=== PATIENT | female | born 1955 | race Caucasian/White ===

== ENCOUNTER 2024-10-23 05:44 | Emergency (ER) | payer BC, MEDICARE ==
[2024-10-23 07:11] LABS: INFLUENZA A NAA NEGATIVE (NEGATIVE); INFLUENZA B NAA NEGATIVE (NEGATIVE); RESPIRATORY SYNCYTIAL VIR NAA NEGATIVE (NEGATIVE)
[2024-10-23 07:12] LABS: CORONAVIRUS COVID-19 NAA NEGATIVE (NEGATIVE)
== END 2024-10-23 07:27 | disposition home or self-care (01) ==
LOC: LB.ED 05:44
DX: J02.9 Acute pharyngitis, unspecified (principal)
CPT/HCPCS: 87637; 87651; 99284; J7512